=== PATIENT | female | born 1975 | race Caucasian/White ===

== ENCOUNTER 2022-10-07 07:36 | Day surgery (SDC) | payer OTHER ==
[~2022-10-07] VITALS: Ht 152.4 cm; Wt 61.2 kg
[2022-10-07] MEDS ORDERED: fentaNYL citrate 0.05 MG/ML VIAL ONE (11:54)
[2022-10-07] MEDS ORDERED: MIDAZOLAM 2 MG/2 ML VIAL ONE (11:54)
[2022-10-07] MEDS ORDERED: LIDOCAINE 2% 100 MG/5 ML UJET TP ONE (11:55)
[2022-10-07] MEDS ORDERED: MIDAZOLAM 2 MG/2 ML VIAL IVP ONE (13:10)
[2022-10-07] MEDS ORDERED: fentaNYL citrate 0.05 MG/ML VIAL IVP ONE (13:10)
== END 2022-10-07 14:12 | disposition home or self-care (01) ==
LOC: MDS 07:36 → MMU 07:37 → MDS 14:12
PROVIDERS: ATTEND Internal Medicine Gastroenterology
DX: Z12.11 Encounter for screening for malignant neoplasm of colon (principal); K57.30 Diverticulosis of large intestine without perforation or abscess without bleeding; K21.00 Gastro-esophageal reflux disease with esophagitis, without bleeding; K59.00 Constipation, unspecified; R10.13 Epigastric pain; Z80.0 Family history of malignant neoplasm of digestive organs; J45.909 Unspecified asthma, uncomplicated; G43.909 Migraine, unspecified, not intractable, without status migrainosus; Z79.899 Other long term (current) drug therapy; Z20.822 Contact with and (suspected) exposure to COVID-19
CPT/HCPCS: 43235; 45378; 87426; J2250; J3010